=== PATIENT | female | born 1980 | race African-American/Black ===

== ENCOUNTER 2016-06-24 10:50 | Day surgery (SDC) | payer OTHER ==
[~2016-06-24] VITALS: Ht 162.6 cm; Wt 88.0 kg
[~2016-06-24 10:50] MED LIST: DAILY VITAMIN1 EAC4 PO; EFFEXOR75 MG PO
[2016-06-24 17:37] LABS: POINT-OF-CARE METER ID UU13113819
[2016-06-24 21:02] VITALS: BP 137/79
[2016-06-24 23:13] VITALS: BP 128/90
[2016-06-25 04:33] VITALS: BP 111/61
[2016-06-25 07:05] LABS: HEMATOCRIT 31.4 % (36.0-46.0); MCH 26.9 PG (29.0-34.0); MCHC 34.4 G/DL (30.0-36.0); MCV 78.3 FL (83-99); MEAN PLAT.VOLUME 8.8 uM^3 (9.5-12.4); PLATELET COUNT 241 K/uL (156-360); RBC DIS.WIDTH-CV 15.4 % (11.8-14.6); RBC DIS.WIDTH-SD 40.6 % (39-53); RED BLOOD COUNT 4.01 M/uL (3.80-5.20); WHITE BLOOD COUNT 3.9 K/uL (4.1-10.2)
[2016-06-25 07:10] VITALS: BP 125/72
== END 2016-06-25 09:39 | disposition home or self-care (01) ==
LOC: CATH 10:50 → 4EAST 17:00
PROVIDERS: Internal Medicine Cardiovascular Disease
DX: R07.9 Chest pain, unspecified (principal); R94.39 Abnormal result of other cardiovascular function study; Z98.84 Bariatric surgery status; E11.9 Type 2 diabetes mellitus without complications; Z88.2 Allergy status to sulfonamides; Z88.5 Allergy status to narcotic agent
CPT/HCPCS: 82948; 85027; 85347; C1760; C1769; C1887; C1894; G0378; J1644; J2250; J3010; J7040